=== PATIENT | female | born 1960 | race Caucasian/White ===

== ENCOUNTER 2016-11-12 08:29 | Emergency (ER) | payer SELFPAY ==
[~2016-11-12] VITALS: Ht 162.6 cm; Wt 65.0 kg
[~2016-11-12 08:29] MED LIST: METH500T3 PO; TRAM50 PO; Z.0.NO CURRENT MEDS
[2016-11-12 08:35] VITALS: BP 124/88; PULSE 82; RESP 17; TEMP 98.2; O2SAT 98
[2016-11-12] MEDS ORDERED: PERM5CRE11 TOPICAL (08:49)
[2016-11-12] MEDS ORDERED: HYDR-3133 PO (08:52)
--- NOTE | 2016-11-12 08:52 | PD ---
HPI Chief Complaint: Skin Problem Time Seen by Provider: 08:47 Travel History International Travel<30 days: No Contact w/Intl Traveler<30days: No Traveled to known affect area: No History of Present Illness HPI 56-year-old female presents to the emergency Department with complaint of scabies rash that she has had on and off for the past 4 months. Rash is itchy and all over. She has seen dermatology and [facility] with the same complaint multiple times. Has used Elimite cream and hydroxyzine. Says she has cleaned her house multiple times with recurrence. Denies fever, vomiting. Symptoms are mild in severity. Patient also requesting prescription for hydroxyzine for itching. Has no other medical complaints. No other modifying factors or associated signs and symptoms. PFSH Past Medical History Arthritis: Yes Asthma: No Blood Disorders: No Anxiety: Yes Heart Rhythm Problems: No Cancer: No Cardiovascular Problems: No High Cholesterol: No Chemotherapy: No Chest Pain: No Congestive Heart Failure: No COPD: Yes Diminished Hearing: No Endocrine: No Gastrointestinal Disorders: No Genitourinary: Yes Headaches: No Hypertension: No Immune Disorder: No Kidney Stones: Yes Musculoskeletal: Yes Neurologic: No Psychiatric: Yes Reproductive: No Respiratory: No Myocardial Infarction: No Renal Failure: No Seizures: No Thyroid Disease: No Tetanus Vaccination: > 5 Years ?: Not Menopausal: Yes : 2 Para: 1 Miscarriage: 0 : 1 Tubal Ligation: Yes Past Surgical History Abdominal Surgery: Yes (kidney stones) AICD: No Cardiac Surgery: No Section: Yes Ear Surgery: No Endocrine Surgery: No Eye Surgery: No Genitourinary Surgery: Yes Gynecologic Surgery: Yes Oral Surgery: No Pacemaker: No Thoracic Surgery: No Other Surgery: Yes (KIDNEY STONES) Social History Alcohol Use: No Tobacco Use: Yes (1 PPD) Substance Use: No Allergies-Medications (Allergen,Severity, Reaction): Coded Allergies: acetaminophen (Unverified Allergy, Severe, VOMITING, 11/12/16) codeine (Unverified Allergy, Severe, ITCHINESS, 11/12/16) cyclobenzaprine (Unverified Allergy, Severe, 11/12/16) meperidine (Unverified Allergy, Severe, VOMITING, 11/12/16) penicillin G (Unverified Allergy, Severe, UNKNOWN, 11/12/16) propoxyphene (Unverified Allergy, Severe, VOMITING, 11/12/16) nitrofurantoin (Unverified Allergy, Mild, VOMITING, 11/12/16) Reported Meds & Prescriptions Reported Meds & Active Scripts Active Hydroxyzine HCl 25 Mg Tab 25 Mg PO TID Elimite Topical (Permethrin) 5% Cream 1 Applic TOPICAL ONCE Review of Systems Except as stated in HPI: all other systems reviewed are Neg Physical Exam Narrative GENERAL: Well-nourished, well-developed female patient, in no acute distress SKIN: Warm and dry. Generalized erythremic pimple-like rash to chest, abdomen, back, bilateral upper extremity, bilateral lower extremities; some areas appear excoriated. No areas with cellulitic process noted. HEAD: Atraumatic. Normocephalic. EYES: Pupils equal and round. No scleral icterus. No injection or drainage. ENT: Mucosa pink and moist. Airway patent. NECK: Trachea midline. CARDIOVASCULAR: Regular rate. RESPIRATORY: No accessory muscle use. GASTROINTESTINAL: Rounded. MUSCULOSKELETAL: No obvious deformities. No clubbing. No cyanosis. No edema. NEUROLOGICAL: Awake and alert. Oriented 3. No obvious cranial nerve deficits. Motor grossly within normal limits. Normal speech. PSYCHIATRIC: Appropriate mood and affect; insight and judgment normal. Data Data Last Documented VS Vital Signs Date Time Temp Pulse Resp B/P (MAP) Pulse Ox O2 Delivery O2 Flow Rate FiO2 11/12/16 08:35 98.2 82 17 124/88 (100) 98 MDM Medical Decision Making Medical Screen Exam Complete: Yes Emergency Medical Condition: Yes Medical Record Reviewed: Yes Differential Diagnosis Scabies rash, contact dermatitis, bedbugs, nonspecific rash Narrative Course 56-year-old female physical exam consistent with generalized scabies rash. Patient is afebrile and nontoxic-appearing. She denies fever, vomiting. Elimite cream and hydroxyzine prescribed for home. Instructed patient to follow up with software development project manager. Instructed patient to follow up with primary care provider. Patient verbalizes understanding and agreement with treatment plan. Patient is medically cleared and stable for discharge. Discussed reasons to return to the emergency department. Patient agrees with treatment plan. The patients vital signs are stable and the patient is stable for outpatient follow-up and treatment. Patient discharged home, stable and in no acute distress. Diagnosis Primary Impression: Scabies Referrals: [facility] Primary Care Physician Patient Instructions: General Instructions, Scabies (ED) Departure Forms: Tests/Procedures, Work Release Enter return to work date: Nov 14, 2016 Additional Instructions: Elimite cream as directed; repeat in one week as needed Soaking in cool water or apply cool, wet washcloths to irritated areas to minimize itching Apply anti-itch creams, such as calamine lotion, to relieve pain and itching as needed [id number] antihistamines as needed and as directed to relieve allergic symptoms caused by scabies Wash all pillows, linens, blankets, etc. in hot water and dry in hot dryer Bag and all unwashable linens, Adrian stuffed animals, etc. in a tightly sealed garbage bag for up to 2 weeks Follow-up with software development project manager Follow-up with primary care provider Return to the emergency department immediately with worsening of symptoms Med/Other Pt SpecificInfo: Prescription(s) given Scripts Hydroxyzine HCl (Hydroxyzine HCl) 25 Mg Tab 25 MG PO TID, #12 TAB 0 Refills Prov: Zandra Garcia 11/12/16 Permethrin Topical (Elimite Topical) 5% Cream 1 APPLIC TOPICAL ONCE for Scabies, #1 TUBE 1 Refill Prov: Zandra Garcia 11/12/16 Disposition: 01 DISCHARGE HOME Condition: Stable Zandra Garcia Nov 12, 2016 08:52
== END 2016-11-12 09:12 | disposition home or self-care (01) ==
LOC: NEPK 08:29
DX: B86 Scabies (principal); F41.9 Anxiety disorder, unspecified; J44.9 Chronic obstructive pulmonary disease, unspecified; F17.200 Nicotine dependence, unspecified, uncomplicated; Z79.899 Other long term (current) drug therapy; Z87.442 Personal history of urinary calculi; Z88.5 Allergy status to narcotic agent; Z88.0 Allergy status to penicillin; Z88.8 Allergy status to other drugs, medicaments and biological substances
CPT/HCPCS: 99283

== ENCOUNTER 2016-12-26 10:40 | Emergency (ER) | payer SELFPAY ==
[~2016-12-26] VITALS: Ht 160 cm; Wt 56.0 kg
[~2016-12-26 10:40] MED LIST changes: +HYDR-3133 PO; -METH500T3 PO; +PERM5CRE11 TOPICAL; -TRAM50 PO; -Z.0.NO CURRENT MEDS
[2016-12-26 10:42] VITALS: BP 133/90; PULSE 98; RESP 15; TEMP 97.9; O2SAT 97
[2016-12-26] MEDS ORDERED: GARL1CAP6 (11:52)
[2016-12-26] MEDS ORDERED: XANA1TAB2 PO (11:52)
[2016-12-26] MEDS ORDERED: VITA100021 SL (11:52)
[2016-12-26] MEDS ORDERED: SODIUM CHLORIDE 0.9% FLUSH 10 ML FLUSH IV FLUSH PRN (12:15)
--- NOTE | 2016-12-26 12:33 | PD ---
HPI Chief Complaint: Skin Problem Time Seen by Provider: 11:51 Travel History International Travel<30 days: No Contact w/Intl Traveler<30days: No Traveled to known affect area: No History of Present Illness HPI 56 YO F presents to the ED for evaluation of 6 month history of pruritic rash over the whole body. Gradual onset, first on the hands and feet. She states that she thought it might be due to fleas because her dog had them. She states that she was seen multiple times at multiple hospitals, diagnosed with scabies and prescribed Elimite multiple times with no improvement of her symptoms. She states that she has complied with instructions to rid her home of scabies. No one who has come into contact with the patient has contracted the rash. She endorses low appetite, weight loss and loose stools since onset of the rash. She denies fever, chills, nausea, vomiting, abdominal pain, dysuria, melena, hematochezia. She states that she sometimes picks the scabs and she can see a little bug. She states that when she wakes up in the morning the bugs are gone. PFSH Past Medical History Arthritis: Yes Asthma: No Blood Disorders: No Anxiety: Yes Heart Rhythm Problems: No Cancer: No Cardiovascular Problems: No High Cholesterol: No Chemotherapy: No Chest Pain: No Congestive Heart Failure: No COPD: Yes Diminished Hearing: No Endocrine: No Gastrointestinal Disorders: No Genitourinary: Yes Headaches: No Hypertension: No Immune Disorder: No Kidney Stones: Yes Musculoskeletal: Yes Neurologic: No Psychiatric: Yes Reproductive: No Respiratory: No Myocardial Infarction: No Renal Failure: No Seizures: No Thyroid Disease: No Influenza Vaccination: Yes ?: Not Menopausal: Yes : 2 Para: 1 Miscarriage: 0 : 1 Tubal Ligation: Yes Past Surgical History Abdominal Surgery: Yes (kidney stones) AICD: No Cardiac Surgery: No Section: Yes Ear Surgery: No Endocrine Surgery: No Eye Surgery: No Genitourinary Surgery: Yes Gynecologic Surgery: Yes Oral Surgery: No Pacemaker: No Thoracic Surgery: No Other Surgery: Yes (KIDNEY STONES) Social History Alcohol Use: No Tobacco Use: Yes (1 PPD) Substance Use: No Allergies-Medications (Allergen,Severity, Reaction): Coded Allergies: acetaminophen (Unverified Allergy, Severe, VOMITING, 12/26/16) codeine (Unverified Allergy, Severe, ITCHINESS, 12/26/16) cyclobenzaprine (Unverified Allergy, Severe, 12/26/16) meperidine (Unverified Allergy, Severe, VOMITING, 12/26/16) penicillin G (Unverified Allergy, Severe, UNKNOWN, 12/26/16) propoxyphene (Unverified Allergy, Severe, VOMITING, 12/26/16) nitrofurantoin (Unverified Allergy, Mild, VOMITING, 12/26/16) Reported Meds & Prescriptions Reported Meds & Active Scripts Active Prednisone (48) 10 mg tab Dose Pack (Prednisone) 10 Mg Dspk 10 Mg PO DIRECTED Hydroxyzine HCl 25 Mg Tab 25 Mg PO QID PRN Hydroxyzine HCl 25 Mg Tab 25 Mg PO TID Elimite Topical (Permethrin) 5% Cream 1 Applic TOPICAL ONCE Reported Vitamin B-12 (Cyanocobalamin) 1,000 Mcg Subl 1,000 Mcg SL DAILY Garlic 1 Mg Capsule Xanax (Alprazolam) 1 Mg Tab 1 Mg PO Q8H PRN Review of Systems Except as stated in HPI: all other systems reviewed are Neg Physical Exam Narrative GENERAL: Well-nourished, well-developed thin white female in no acute distress. PSYCHIATRIC: Anxious, pressured speech. SKIN: Focused skin assessment warm/dry. Multiple areas of skin disturbance including erythematous, nonblanching, maculopapular, scaly patches. There are a few scattered bullae. There are multiple excoriations and several healing crusts. There is no warmth, erythema, discharge. HEAD: Normocephalic. EYES: No scleral icterus. No injection or drainage. NECK: Supple, trachea midline. No JVD or lymphadenopathy. CARDIOVASCULAR: Regular rate and rhythm without murmurs, gallops, or rubs. RESPIRATORY: Breath sounds equal bilaterally. No accessory muscle use. GASTROINTESTINAL: Abdomen soft, non-tender, nondistended. MUSCULOSKELETAL: No cyanosis. 1+ edema to the ankles bilaterally. BACK: Nontender without obvious deformity. No CVA tenderness. Data Data Last Documented VS Vital Signs Date Time Temp Pulse Resp B/P (MAP) Pulse Ox O2 Delivery O2 Flow Rate FiO2 12/26/16 14:00 12/26/16 11:52 19 12/26/16 10:42 97.9 98 97 Orders Orders Hydroxyzine Pamoate (Vistaril) (12/26/16 12:15) Alprazolam (Xanax) (12/26/16 12:45) Lidoca-Epi Pf 2%-1:200,000 Inj (Xylocain (12/26/16 12:45) Mandatory Outpatient Referral (12/26/16 15:27) MDM Medical Decision Making Medical Screen Exam Complete: Yes Emergency Medical Condition: Yes Differential Diagnosis contact dermatitis versus psoriasis versus eczema versus porphyria versus delusional parasitosis versus other Narrative Course 56 YO F presents to the ED for evaluation of 6 month history of pruritic rash over the whole body. Gradual onset, first on the hands and feet. Reviewed with Elimite multiple times with no improvement of her symptoms. She states that she has complied with instructions to rid her home of scabies. No sick contacts, no one else has contracted the rash from the patient. She endorses low appetite , weight loss and loose stools since onset of the rash. She denies fever, chills, nausea, vomiting, abdominal pain, dysuria, melena, hematochezia. She states that she sometimes picks the scabs and she can see a little bug. She states she wakes up in the morning the bugs are gone. Vitals reviewed. Physical exam reveals a very anxious white female in NAD. There is a rash distributed over the entire skin surface. The majority of the rashes macular papular, nonblanching, scaly patches. There are a few scattered bullae. There are multiple excoriations and healing crusts all without signs of infection. Patient was administered 50 g of Vistaril and 1 mg Xanax by mouth. Shave biopsy was performed and pathology is pending at this time. She was prescribed short course of oral steroids and Atarax. She is provided with a mandatory outpatient dermatology consult. Discussed reasons to return to the ED. The patient is stable and discharged home. Procedures Procedure Narrative SHAVE BIOPSY: LOCATION: Left ankle The area was prepped with Betadine and sterilely draped. The biopsy site was infiltrated with 1% lidocaine with epinephrine. A 1.5 cm shave biopsy was obtained and sent to pathology in formalin. A sterile dressing was applied. The patient was advised to keep the wound clean and dry. Patient tolerated the procedure well. Diagnosis Primary Impression: Skin rash Additional Impression: Anxiety Referrals: Vending Machine Operator Patient Instructions: Acute Rash (ED), General Instructions Additional Instructions: Rest, hydrate. Avoid contact with known allergens. Cool showers to avoid worsening of her rash. Mandatory outpatient follow-up has been placed on your behalf. You can expect a phone call from either the hospital or the etcher printed [employer] office in the upcoming weeks to schedule an appointment. Return to the ED for any urgent or emergent medical condition. Scripts Prednisone (48) 10 mg tab Dose Pack (Prednisone (48) 10 mg tab Dose Pack) 10 Mg Dspk 10 MG PO DIRECTED for Inflammation, #1 DSPK 0 Refills Prov: Shayy Garza MD 12/26/16 Hydroxyzine HCl (Hydroxyzine HCl) 25 Mg Tab 25 MG PO QID Y for ITCHING, #20 TAB 0 Refills Prov: Shayy Garza MD 12/26/16 Disposition: 01 DISCHARGE HOME Condition: Stable Kerry Lawson Dec 26, 2016 12:33
[2016-12-26] MEDS ORDERED: LIDOCAINE 2%/EPINEPHrine PF 1:200,000 20ML SDV INFIL ONE (12:45)
[2016-12-26] MEDS ORDERED: ALPRAZolam 1 MG TAB PO ONE (12:45)
[2016-12-26] MEDS ORDERED: PRED10PA2 PO (14:01)
[2016-12-26] MEDS ORDERED: HYDR-3133 PO (14:01)
--- NOTE | 2016-12-26 19:01 | PD ---
Data Data Last Documented VS Vital Signs Date Time Temp Pulse Resp B/P (MAP) Pulse Ox O2 Delivery O2 Flow Rate FiO2 12/26/16 14:00 12/26/16 11:52 19 12/26/16 10:42 97.9 98 97 Orders Orders Hydroxyzine Pamoate (Vistaril) (12/26/16 12:15) Alprazolam (Xanax) (12/26/16 12:45) Lidoca-Epi Pf 2%-1:200,000 Inj (Xylocain (12/26/16 12:45) Mandatory Outpatient Referral (12/26/16 15:27) MDM Supervised Visit with LUCIANA: Yes Narrative Course The history, exam, and medical decision-making in the associated midlevel provider note were completed with my assistance. I reviewed and agree with the findings presented. I attest that I had a [id number] encounter with the patient on the same day, and personally performed and documented my assessment and findings in the medical record. *My assessment and Findings: This is a 56-year-old female who presents to the emergency department with itchy skin and wounds all over her arms and legs. Patient seems hypomanic on exam. She says that she thinks that bugs are coming out of her scan and she sees bugs under a microscope. 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 It seems reasonable to rule out an organic pathology. We performed a skin biopsy in the emergency department. Patient was given a mandatory referral for dermatology but I also recommended that she follow up with psychiatrist. Diagnosis Primary Impression: Skin rash Additional Impression: Anxiety Referrals: Harness Worker Patient Instructions: General Instructions, Acute Rash (ED) Departure Forms: Tests/Procedures Additional Instruction: Rest, hydrate. Avoid contact with known allergens. Cool showers to avoid worsening of her rash. Mandatory outpatient follow-up has been placed on your behalf. You can expect a phone call from either the hospital or the [facility]mer automatic office in the upcoming weeks to schedule an appointment. Return to the ED for any urgent or emergent medical condition. Scripts Prednisone (48) 10 mg tab Dose Pack (Prednisone (48) 10 mg tab Dose Pack) 10 Mg Dspk 10 MG PO DIRECTED for Inflammation, #1 DSPK 0 Refills Prov: Shayy Garza MD 12/26/16 Hydroxyzine HCl (Hydroxyzine HCl) 25 Mg Tab 25 MG PO QID Y for ITCHING, #20 TAB 0 Refills Prov: Shayy Garza MD 12/26/16 Disposition: 01 DISCHARGE HOME Condition: Stable Shayy Garza MD Dec 26, 2016 19:01
== END 2016-12-26 14:15 | disposition home or self-care (01) ==
LOC: NEPD 10:40
DX: R21 Rash and other nonspecific skin eruption (principal); F41.9 Anxiety disorder, unspecified
CPT/HCPCS: 11307; 88305

== ENCOUNTER 2017-10-28 12:54 | Inpatient (IN) ==
--- NOTE | 2017-10-28 13:44 | ED ---
HPI General Chief Complaint: Psychiatric Symptoms Stated Complaint: [facility]/Psych Eval Time Seen by Provider: 10/28/17 13:38 History of Present Illness HPI Narrative: Patient comes emergency department under [place] act by police reports suicidal ideations. Patient denies any suicidal or homicidal ideations. Patient states that she has been treated 9 times for scabies over the past year but they have never gone away. Patient reports that she has had her house treated for scabies but continues to see the bugs in her home and food. Patient states that she does not want to eat food at home secondary to bugs being in her food. Patient reports that she has been drinking protein shakes instead. Patient states she has lost weight secondary to not eating. Patient states that the itching is constant and is the same day or night. Patient denies anything making it better or worse. Patient states when she scratches at the lesions and she sees little black baby bugs run out of the sores. Denies any fevers, chest pain, shortness of breath, or loss change in bowel or bladder. Related Data Home Medications Medication Instructions Recorded Confirmed Xanax 1 mg PO TID 10/28/17 10/28/17 gabapentin 300 mg PO BID 10/28/17 10/28/17 Allergies Allergy/AdvReac Type Severity Reaction Status Date / Time acetaminophen Allergy Severe VOMITING Unverified 12/26/16 11:50 codeine Allergy Severe ITCHINESS Unverified 12/26/16 11:50 cyclobenzaprine Allergy Severe Unverified 12/26/16 11:50 meperidine Allergy Severe VOMITING Unverified 12/26/16 11:50 penicillin G Allergy Severe UNKNOWN Unverified 12/26/16 11:50 propoxyphene Allergy Severe VOMITING Unverified 12/26/16 11:50 nitrofurantoin Allergy Mild VOMITING Unverified 12/26/16 11:50 Review of Systems ROS: all other systems reviewed are negative [facility] Medical History Medical History Anxiety (Acute) History of hysterectomy (Acute) Kidney stones (Acute) Scabies (Acute) Social History Social History Substance History: Past History Second Hand Smoke Exposure: No Smoking Status: Current every day smoker Tobacco Type: Cigarettes How Often Do You Have a Drink Containing Alcohol: Never Recent Travel in [facility] within the Last 8 Weeks: No Recent Out of Country Travel within the Last 8 Weeks: No Exam Narrative Exam Narrative: GENERAL: Well-developed, well nourished, in no acute distress, and non-ill appearing. SKIN: Patient has multiple areas of dry skin with some excoriation noted. Findings are not consistent with scabies, folliculitis, cellulitis, or impetigo. HEAD: Atraumatic. Normocephalic. EYES: Pupils equal and round. EOMI. No scleral icterus. No injection or drainage. ENT: No nasal bleeding or discharge. Mucous membranes pink and moist. NECK: Trachea midline. Supple. No nuclear rigidity. CARDIOVASCULAR: Regular rate and rhythm. No murmur appreciated. RESPIRATORY: No accessory muscle use. No respiratory distress. Clear to auscultation. Breath sounds equal bilaterally. GASTROINTESTINAL: Abdomen soft, non-tender, nondistended, and no guarding. Hepatic and splenic margins not palpable. Normal bowel sounds x4. No pulsatile mass. MUSCULOSKELETAL: No obvious deformities. No clubbing. No cyanosis. No edema. Full range of motion. NEUROLOGICAL: Awake and alert. No obvious cranial nerve deficits. Motor grossly within normal limits. Normal speech. PSYCHIATRIC: Appropriate mood and affect; insight and judgment normal. Course Initial Documented Vital Signs Temperature 98.7 F 10/28/17 13:07 Pulse Rate 113 H 10/28/17 13:07 Respiratory Rate 20 10/28/17 13:07 Blood Pressure 153/90 H 10/28/17 13:07 Pulse Oximetry 97 10/28/17 13:07 Last Documented Vital Signs Temperature 98.0 F 10/28/17 18:27 Pulse Rate 92 H 10/28/17 18:27 Respiratory Rate 18 10/28/17 18:27 Blood Pressure 125/106 H 10/28/17 18:27 Pulse Oximetry 98 10/28/17 18:27 Medical Decision Making MDM Narrative Medical decision making narrative: Patient was seen and examined. Labs were obtained and reviewed. Patient medically cleared for further treatment and evaluation by psych. Final disposition per psych. Medical Screen Exam Complete: Yes Emergency Medical Condition: Yes Differential Diagnosis Differential Diagnosis: Homicidal, suicidal, acute psychosis, mood disorder, substance abuse, metabolic disturbance, dehydration, paranoia Lab Data Result diagrams: 10/28/17 13:11 10/28/17 13:11 Lab Results 10/28/17 10/28/17 10/28/17 Range/Units 13:11 13:11 13:11 WBC 5.8 (4.0-11.0) th/mm3 RBC 4.96 (4.00-5.30) mil/mm3 Hgb 15.0 (11.6-15.3) gm/dL Hct 44.7 (35.0-46.0) % MCV 90.2 (80.0-100.0) fL MCH 30.3 (27.0-34.0) pg MCHC 33.6 (32.0-36.0) % RDW 13.4 (11.6-17.2) % Plt Count 211 (150-450) th/mm3 MPV 9.7 (7.0-11.0) fL Neut % (Auto) 67.9 (16.0-70.0) % Lymph % (Auto) 23.2 (9.0-44.0) % Maries % (Auto) 6.3 (0.0-8.0) % Eos % (Auto) 2.0 (0.0-4.0) % Baso % (Auto) 0.6 (0.0-2.0) % Neut # (Auto) 3.9 (1.8-7.7) th/mm3 Lymph # (Auto) 1.3 (1.0-4.8) th/mm3 Maries # (Auto) 0.4 (0.0-0.9) th/mm3 Eos # (Auto) 0.1 (0.0-0.4) th/mm3 Baso # (Auto) 0.0 (0.0-0.2) th/mm3 WBC Differential . Differential Comment Auto diff final Sodium 140 (136-145) meq/L Potassium 3.9 (3.5-5.1) meq/L Chloride 107 (98-107) meq/L Carbon Dioxide 25.2 (21.0-32.0) meq/L Anion Gap 8 (5-15) meq/L BUN 11 (7-18) mg/dL Creatinine 0.88 (0.50-1.00) mg/dL Estimated GFR 66 L (>89) mL/min Random Glucose 139 H (74-106) mg/dL Calcium 9.6 (8.5-10.1) mg/dL Total Bilirubin 0.6 (0.2-1.0) mg/dL AST 39 H (15-37) U/L ALT 48 (10-53) U/L Alkaline Phosphatase 59 (45-117) U/L Total Protein 7.8 (6.4-8.2) g/dL Albumin 4.2 (3.4-5.0) g/dL TSH 1.120 (0.358-3.740) uIU/mL Urine Color (Yellw/Straw) Urine Clarity (Clear) Urine pH (5.0-8.5) Ur Specific [place] (1.002-1.035) Urine Protein (Neg-Trace) mg/dL Urine Glucose (UA) (Negative) mg/dL Urine Ketones (Negative) mg/dL Urine Occult Blood (Negative) Urine Nitrate (Negative) Urine Bilirubin (Negative) Urine Urobilinogen (Less than 2) mg/dL Ur Leukocyte Esterase (Negative) Urine RBC (0-3) /hpf Urine WBC (0-5) /hpf Ur Squamous Epith Cells (0-5) /hpf Urine Bacteria (None) /hpf Hyaline Casts (0-3) /lpf Urine Mucus (Occasional) /lpf Micro UA Comment Urine Culture Comments Salicylates 1.8 L (2.8-20.0) mg/dL Urine Opiates Screen (Neg) Acetaminophen Less than 2.0 L (10.0-30.0) mcg/mL Ur Barbiturates Screen (Neg) Ur Amphetamines Screen (Neg) U Benzodiazepines Scrn (Neg) Urine Cocaine Screen (Neg) U Cannabinoids Screen (Neg) Serum Alcohol Less than 3 (0-5) mg/dL 10/28/17 10/28/17 Range/Units 15:25 15:25 WBC (4.0-11.0) th/mm3 RBC (4.00-5.30) mil/mm3 Hgb (11.6-15.3) gm/dL Hct (35.0-46.0) % MCV (80.0-100.0) fL MCH (27.0-34.0) pg MCHC (32.0-36.0) % RDW (11.6-17.2) % Plt Count (150-450) th/mm3 MPV (7.0-11.0) fL Neut % (Auto) (16.0-70.0) % Lymph % (Auto) (9.0-44.0) % Maries % (Auto) (0.0-8.0) % Eos % (Auto) (0.0-4.0) % Baso % (Auto) (0.0-2.0) % Neut # (Auto) (1.8-7.7) th/mm3 Lymph # (Auto) (1.0-4.8) th/mm3 Maries # (Auto) (0.0-0.9) th/mm3 Eos # (Auto) (0.0-0.4) th/mm3 Baso # (Auto) (0.0-0.2) th/mm3 WBC Differential Differential Comment Sodium (136-145) meq/L Potassium (3.5-5.1) meq/L Chloride (98-107) meq/L Carbon Dioxide (21.0-32.0) meq/L Anion Gap (5-15) meq/L BUN (7-18) mg/dL Creatinine (0.50-1.00) mg/dL Estimated GFR (>89) mL/min Random Glucose (74-106) mg/dL Calcium (8.5-10.1) mg/dL Total Bilirubin (0.2-1.0) mg/dL AST (15-37) U/L ALT (10-53) U/L Alkaline Phosphatase (45-117) U/L Total Protein (6.4-8.2) g/dL Albumin (3.4-5.0) g/dL TSH (0.358-3.740) uIU/mL Urine Color Yellow (Yellw/Straw) Urine Clarity Clear (Clear) Urine pH 6.0 (5.0-8.5) Ur Specific [place] 1.010 (1.002-1.035) Urine Protein Negative (Neg-Trace) mg/dL Urine Glucose (UA) Negative (Negative) mg/dL Urine Ketones Negative (Negative) mg/dL Urine Occult Blood Negative (Negative) Urine Nitrate Negative (Negative) Urine Bilirubin Negative (Negative) Urine Urobilinogen Less than 2 (Less than 2) mg/dL Ur Leukocyte Esterase Negative (Negative) Urine RBC Less than 1 (0-3) /hpf Urine WBC Less than 1 (0-5) /hpf Ur Squamous Epith Cells 1 (0-5) /hpf Urine Bacteria Rare H (None) /hpf Hyaline Casts 1 (0-3) /lpf Urine Mucus Few H (Occasional) /lpf Micro UA Comment Culture not ind Urine Culture Comments Culture not ind Salicylates (2.8-20.0) mg/dL Urine Opiates Screen Pos H (Neg) Acetaminophen (10.0-30.0) mcg/mL Ur Barbiturates Screen Neg (Neg) Ur Amphetamines Screen Neg (Neg) U Benzodiazepines Scrn Pos H (Neg) Urine Cocaine Screen Pos H (Neg) U Cannabinoids Screen Neg (Neg) Serum Alcohol (0-5) mg/dL Discharge Plan Discharge Disposition Patient Disposition: 30 Still Patient Discharge Condition Condition: Stable Discharge Details Diagnosis: Substance abuse, Medical clearance for psychiatric admission Physicians Team ED Provider: Cecilia Umaña ED Midlevel Provider: Arnel Mack Primary Care Provider: Primary Care Lenore Marsh Rxs /Orders / Referrals /Forms Prescriptions: No Action Xanax 1 mg PO TID RF: 0 gabapentin 300 mg PO BID RF: 0 Status ED Status: Medically Cleared
[2017-10-28 14:03] LABS: Baso % (Auto) 0.6 % (0.0-2.0); Eos # (Auto) 0.1 th/mm3 (0.0-0.4); Hematocrit 44.7 % (35.0-46.0); Lymph # (Auto) 1.3 th/mm3 (1.0-4.8); Lymph % (Auto) 23.2 % (9.0-44.0); Mean Corpuscular HGB Conc 33.6 % (32.0-36.0); Mean Corpuscular Hemoglobin 30.3 pg (27.0-34.0); Mean Corpuscular Volume 90.2 fL (80.0-100.0); Mean Platelet Volume 9.7 fL (7.0-11.0); Mono # (Auto) 0.4 th/mm3 (0.0-0.9); Mono % (Auto) 6.3 % (0.0-8.0); Neut # (Auto) 3.9 th/mm3 (1.8-7.7); Neut % (Auto) 67.9 % (16.0-70.0); Platelet Count 211 th/mm3 (150-450); Red Blood Count 4.96 mil/mm3 (4.00-5.30); Red Cell Distribution Width 13.4 % (11.6-17.2); White Blood Count 5.8 th/mm3 (4.0-11.0)
[2017-10-28 14:17] LABS: Alanine Aminotransferase 48 U/L (10-53); Albumin 4.2 g/dL (3.4-5.0); Anion Gap 8 meq/L (5-15); Aspartate Aminotransferase 39 U/L (15-37); Blood Urea Nitrogen 11 mg/dL (7-18); Calcium 9.6 mg/dL (8.5-10.1); Carbon Dioxide 25.2 meq/L (21.0-32.0); Chloride 107 meq/L (98-107); Glomerular Filtration Rate 66 mL/min (>89); Glucose,Random 139 mg/dL (74-106); Potassium 3.9 meq/L (3.5-5.1); Sodium 140 meq/L (136-145)
[2017-10-28 14:27] LABS: Alkaline Phosphatase 59 U/L (45-117); Total Protein 7.8 g/dL (6.4-8.2)
[2017-10-28 15:56] LABS: Bacteria,Urine Rare /hpf; Bilirubin,Urine Negative (Negative); Clarity,Urine Clear (Clear); Color,Urine Yellow (Yellw/Straw); Glucose,Urine (UA) Negative (Negative); Hyaline Casts,Urine 1 /lpf (0-3); Leukocyte Esterase,Urine Negative (Negative); Mucus,Urine Few /lpf (Occasional); Nitrite,Urine Negative (Negative); Squamous Epithelial Cell,Urine 1 /hpf (0-5)
[2017-10-28 16:09] LABS: Amphetamine Screen,Urine Neg (Neg); Barbiturate Screen,Urine Neg (Neg); Cannabinoid Screen,Urine Neg (Neg); Cocaine Screen,Urine Pos (Neg)
[2017-10-28 16:10] LABS: Opiate Screen,Urine Pos (Neg)
[2017-10-28] MEDS ORDERED: Ibuprofen 600 MG Tablet PO ONE (17:24)
[2017-10-29] MEDS ORDERED: Ibuprofen 600 MG Tablet PO ONE (02:14)
[2017-10-29] MEDS ORDERED: Haloperidol Inj 5 MG/ML Ampul IV.PUSH PRN (10:37)
[2017-10-29] MEDS ORDERED: Bisacodyl 10 MG Supp RECTAL PRN (10:37)
[2017-10-29] MEDS ORDERED: Aluminum/Magnesium/Simethacone Susp 30 ML UDC PO PRN (10:37)
--- NOTE | 2017-10-29 15:11 | P.HPPSY ---
Provisional Diagnosis Admission Date: October 29, 2017 10:38 [place] I.: Unspecified psychosis, delusional disorder, somatic type, delusions of parasitosis, hemoptic-sedative, opiates, and cocaine use disorder, Competence Certification of Person's Competence To Provide Express and Informed Consent I have personally examined Demetrice Pittman, a person being served at [facility] on, October 29, 2017 1455. Express and informed consent means consent voluntarily given in writing, by a competent person, after sufficient explanation and disclosure of the subject matter involved to enable the person to make a knowing and willful decision without any element of force, fraud, deceit, duress, or other form of constraint or coercion. This person is 18 years of age or older, is not now known to be incompetent to consent to treatment with a guardian advocate, and does not have a health care surrogate or proxy currently making medical treatment decisions. I have found this person to be one of the following: [] Competent to provide express and informed consent, as defined above, for voluntary admission to this facility and is competent to provide express and informed consent for treatment. He/she has the consistent capacity to make well reasoned, willful, and knowing decisions concerning his or her medical or mental health treatment. The person fully and consistently understands the purpose of the admission for examination/placement and is fully capable of personally exercising all rights assured [place] Incompetent to provide express and informed consent to voluntary admission, and this is incompetent to provide express and informed consent to treatment. The person must be transferred to involuntary status and a petition for a guardian advocate filed with the Circuit Court. [x] Refusing to provide express and informed consent to voluntary admission but is competent to provide express and informed consent for treatment. The person must be discharged or transferred to involuntary status. Form shall be completed within 24 hours of a person's arrival at the receiving facility and filed in the clinical record of each person: 1. Admitted on a voluntary basis 2. Permitted to provide express and informed consent to his/her own treatment 3. Allowed to transfer from involuntary to voluntary status 4. Prior to permitting a person to consent to his or her own treatment after having been previously found incompetent to consent to treatment. History of Present Illness Capacity: Has capacity History of Present Illness: The patient is a 57 year old woman, domiciled with her in [place], unemployed, anxiety, benzodiazepines, opiates and cocaine use disorder, no previous psychiatric hospitalizations, no previous suicidal attempts, the patient reports that she has been in Xanax 1 mg 3 times per day prescribed by PCP for a long time, she has medical history hypertension, who comes emergency department under [place] act by police reports suicidal ideations. U tox is positive for cocaine, opiates and cannabis. Chart was reviewed. The case was discussed with ER staff. On my psychiatric evaluation I find a patient that is extremely anxious, very emotionally unstable, stating that she has a real problem that no doctor have been able to self. She is looking at her bed screen, stating that the "bed is full of eggs". Patient states that she has been treated 9 times for scabies over the past year but they have never gone away. Patient reports that she has had her house treated for scabies but continues to see the bugs in her home and food. Patient states that she does not want to eat food at home secondary to bugs being in her food. Patient reports that she has been drinking protein shakes instead. Patient states she has lost weight secondary to not eating. She says that she prefers to kill herself before having to live this way. Patient tries to show me this scabies is in her skin, all I see are multiple scratches and lacerations, patient states that the itching is constant and is the same day or night. Patient states when she scratches at the lesions and she sees little black baby bugs run out of the sores. On the evaluation the patient is very anxious, very tremulous, she says that she is withdrawing. She denies homicidal ideation, she denies visual and auditory hallucinations at the moment. - Inpatient Certification I certify that the inpatient services were ordered in accordance with Medicare regulations governing the order. This includes certification that hospital inpatient services are reasonable and necessary and in the case of services not specified as inpatient-only under 42 CFR 419.22(n), that they are appropriately provided as inpatient services in accordance to with the 2-midnight benchmark under 43 CFR 412.3(e) I certify that inpatient psychiatric hospital services are medically necessary. Evaluation and treatment and/or diagnostic testing are expected to improve the patient's condition. The patient needs on a daily basis, active treatment furnished directly by or requiring the supervision of inpatient psychiatric facility personnel. Estimated Total Length of Stay (Days): 7 Plans for Post Hospital Care: Home Review of Systems Constitutional: Denies anorexia, Denies body ache(s), Denies chills, Denies daytime sleepiness, Denies excessive sweating, Denies fatigue, Denies fever(s), Denies headache(s), Denies increased appetite, Denies lack of energy, Denies malaise, Denies night sweats, Denies weakness, Denies weight gain, Denies weight loss, Denies other Eyes: Denies blind spots, Denies blurry vision, Denies bulging eyes, Denies change in vision, Denies double vision, Denies discharge, Denies dry eyes, Denies floaters, Denies irritation, Denies itchy eyes, Denies loss of vision, Denies pain, Denies requires corrective lenses, Denies sensitivity to light, Denies other Ears, Nose, Mouth, and Throat: Denies abnormal hearing, Denies bleeding gums, Denies bad breath, Denies change in voice, Denies dental pain, Denies difficulty swallowing, Denies dizziness, Denies dry mouth, Denies ear discharge , Denies ear pain, Denies facial pain, Denies headache(s), Denies hearing loss, Denies hoarseness, Denies lip swelling, Denies nosebleed, Denies mouth lesions, Denies mouth pain, Denies nasal congestion, Denies nasal discharge, Denies nasal obstruction, Denies nasal trauma, Denies neck lump, Denies neck pain, Denies nose pain, Denies pain with swallowing, Denies poor balance, Denies post nasal drip, Denies ringing in the ears, Denies sinus pain, Denies sinus pressure , Denies sore throat, Denies throat swelling, Denies tongue swelling, Denies other Cardiovascular: Denies chest pain, Denies chest pain at rest, Denies chest pain with activity, Denies excessive sweating, Denies fainting, Denies fast heart rate, Denies foot swelling, Denies generalized swelling, Denies irregular heart rhythm, Denies leg pain with activity, Denies leg sores, Denies leg swelling, Denies lightheadedness, Denies radiating jaw, neck or arm pain, Denies rapid, pounding, or irregular heartbeat, Denies shortness of breath, Denies shortness of breath with activity, Denies shortness of breath when lying down, Denies shortness of breath causing sudden awakening, Denies slow heart rate, Denies other Respiratory: Denies change in phlegm color, Denies chest congestion, Denies cough, Denies coughing up blood, Denies excessive phlegm production, Denies pain on inspiration, Denies pain with cough, Denies shortness of breath, Denies shortness of breath with activity, Denies snoring, Denies stridor, Denies wheezing, Denies other Gastrointestinal: Denies abdominal pain, Denies belching, Denies black, tarry stools, Denies bloating, Denies bright, red blood in stools, Denies change in bowel habits, Denies constant urge to pass stool, Denies change in stools, Denies coffee ground vomit, Denies constipation, Denies cramping, Denies difficulty swallowing, Denies excessive passing of gas, Denies feeling full early, Denies heartburn, Denies incontinent of stools, Denies loose stools, Denies nausea, Denies pain with swallowing, Denies vomiting, Denies vomiting blood, Denies other Genitourinary: Denies abnormal periods, Denies abnormal vaginal bleeding, Denies absent period, Denies bleeding between periods, Denies blood in urine, Denies difficulty starting urination, Denies difficulty urinating, Denies dribbling after urination, Denies frequent nighttime urination, Denies genital itching, Denies genital lesions, Denies heavy periods, Denies hot flashes, Denies light periods, Denies nipple discharge, Denies painful intercourse, Denies painful periods, Denies painful urination, Denies pelvic pain, Denies prolapse symptoms, Denies sexual problems, Denies side pain, Denies urinary incontinence, Denies urinary urgency, Denies vaginal discharge, Denies vaginal dryness, Denies vaginal odor, Denies vaginal itching, Denies other Musculoskeletal: Denies abnormal walking, Denies back pain, Denies body aches, Denies decreased muscle mass, Denies deformity, Denies joint pain, Denies joint swelling, Denies limited joint movement, Denies loss of height, Denies muscle cramps, Denies muscle weakness, Denies neck pain, Denies numbness, Denies radiating pain into limb, Denies stiffness, Denies tingling, Denies other Psychiatric: Reports confusion, Reports depression, Reports irritability, Reports mood swings, Reports paranoia, Denies abnormal sleep pattern, Denies anxiety, Denies behavioral changes, Denies change in appetite, Denies change in sex drive, Denies difficulty concentrating, Denies hearing things others do not hear, Denies hopelessness, Denies lack of enjoyment, Denies memory loss, Denies panic attacks, Denies seeing things others do not see, Denies sensing things others do not sense, Denies tactile hallucinations, Denies thoughts of hurting/ killing others, Denies thoughts of hurting/killing yourself, Denies other PMFSH - History History Provided By: Patient - Medical History Medical History: Medical History (Last Reviewed 10/28/17 @ 13:44 by MALLIKA Vivar) Anxiety History of hysterectomy Kidney stones Scabies - Tobacco History Second Hand Smoke Exposure: No Tobacco Use In Past 30 Days: Yes Smoking Status: Current every day smoker Tobacco Type: Cigarettes - Alcohol History How Often Do You Have a Drink Containing Alcohol: Never - Substance Use History Substance History: Past History - Substance Use Type Marijuana Status: Active Route Used: Inhalation Comment: Urine is pending toxicology Crack/Cocaine Status: Active - Travel History Recent Travel in the [place] Within the Last 8 Weeks: No Recent Travel Out of the Country Within the Last 8 Weeks: No - Immunization History Tetanus Immunization: Unable to Assess Hx Influenza Vaccine This Season: No Medications and Allergies Active Medications: Active Medications Al Hydrox/Mg Hydrox/Simethicone (Mag-Al Plus Susp Liq) 30 ml PO Q6H PRN PRN Reason: DYSPEPSIA Al Hydroxide/Mg Hydroxide (Milk Of Magnesia Liq) 30 ml PO Q12H PRN PRN Reason: Mild Constipation Bisacodyl (Dulcolax Supp) 10 mg RECTAL DAILY PRN PRN Reason: SEVERE CONSITIPATION Flumazenil (Romazecon Inj) 0.2 mg IV.PUSH Q1M PRN PRN Reason: OVERSEDATION Gabapentin (Neurontin) 300 mg PO BID ETHAN Haloperidol Lactate (Haldol Inj) 1 mg IV.PUSH Q15M PRN PRN Reason: for severe agitation Lactulose (Lactulose Liq) 30 ml PO DAILY PRN PRN Reason: SEVERE CONSITIPATION Lorazepam (Ativan) 1 mg PO Q4H PRN PRN Reason: for CIWA 8-10 Lorazepam (Ativan) 2 mg PO Q2H PRN PRN Reason: for CIWA 11-14 Lorazepam (Ativan Inj) 2 mg IV.PUSH Q2H PRN PRN Reason: for CIWA 11-14 Lorazepam (Ativan Inj) 2 mg IV.PUSH Q1H PRN PRN Reason: for CIWA 15-20 Lorazepam (Ativan Inj) 1 mg IV.PUSH Q4H PRN PRN Reason: for CIWA 8-10 Lorazepam (Ativan Inj) 2 mg IV.PUSH Q15M PRN PRN Reason: for CIWA > 20 Quetiapine Fumarate (Seroquel) 25 mg PO BID ETHAN Senna/Docusate Sodium (Sherri-Colace) 1 tab PO BID ETHAN Sennosides (Senokot) 17.2 mg PO Q12H PRN PRN Reason: Moderate Constipation Allergies Allergy/AdvReac Type Severity Reaction Status Date / Time codeine Allergy Severe Rash Verified 10/29/17 00:53 nitrofurantoin Allergy Mild Vomiting Verified 10/29/17 00:53 acetaminophen Allergy Rash Verified 10/29/17 00:53 [From Darvocet-N] cyclobenzaprine Allergy Rash Verified 10/29/17 00:53 [From Flexeril] ketorolac [From Toradol] Allergy Rash Verified 10/29/17 00:53 meperidine [From Demerol] Allergy Rash Verified 10/29/17 00:53 propoxyphene Allergy Rash Verified 10/29/17 00:53 [From Darvocet-N] Home Medications Medication Instructions Recorded Confirmed Type Xanax 1 mg PO TID 10/28/17 10/28/17 History gabapentin 300 mg PO BID 10/28/17 10/28/17 History Results - Labs CBC & Chem 7: 10/28/17 13:11 10/28/17 13:11 Labs: Laboratory Results - last 24 hr 10/28/17 10/28/17 15:25 15:25 Urine Color Yellow Urine Clarity Clear Urine pH 6.0 Ur Specific [place] 1.010 Urine Protein Negative Urine Glucose (UA) Negative Urine Ketones Negative Urine Occult Blood Negative Urine Nitrate Negative Urine Bilirubin Negative Urine Urobilinogen Less than 2 Ur Leukocyte Esterase Negative Urine RBC Less than 1 Urine WBC Less than 1 Ur Squamous Epith Cells 1 Urine Bacteria Rare H Hyaline Casts 1 Urine Mucus Few H Micro UA Comment Culture not ind Urine Culture Comments Culture not ind Urine Opiates Screen Pos H Ur Barbiturates Screen Neg Ur Amphetamines Screen Neg U Benzodiazepines Scrn Pos H Urine Cocaine Screen Pos H U Cannabinoids Screen Neg Exam Vital signs: Vital Signs 10/28/17 18:27 10/29/17 12:28 Temperature 98.0 F 98.8 F Pulse Rate 92 H 79 Respiratory Rate 18 Blood Pressure 125/106 H 134/79 Pulse Oximetry 98 98 Intake & Output 10/28/17 10/29/17 10/29/17 18:59 06:59 18:59 Weight 40.823 kg 41.4 kg Other: Weight On Admission 41.4 kg Narrative: Bilateral hand tremor, some sweating, agitation present - Constitutional moderate distress, severe distress - Routine HEENT Exam Head: Present: normocephalic Eye: Present: EOMI ENT: Present: mucous membranes moist Mental Status Examination Appearance: Disheveled Consciousness: Alert Orientation: x4 Motor Activity: Normal gait Speech: Unremarkable Language: Adequate Fund of Knowledge: Adequate Attention and Concentration: Adequate Memory: Unremarkable Mood: Appropriate, Angry, Irritable Affect: Irritable Thought Process & Associations: Goal directed Thought Content: Appropriate Hallucination Type: None, Visual Delusion Type: Somatic Suicidal Ideation: No Suicidal Plan: No Suicidal Intention: No Homicidal Ideation: No Homicidal Plan: No Homicidal Intention: No Insight: Poor Judgment: Poor Assessment and Plan - Plan Plan: Estimated LOS: [] days On psychiatric evaluation today I find a patient that is quite behavioral and emotional dysregulated, anxious, very irritable, with a fixed, with a structure complex delusion of having and seen multiple scabies over her body which seems to be quite distressing since and has detrimental consequences in the health of the patient. Patient has being persistently scratching her skin with the result of multiple abrasions and lacerations all over her body, she also has been having suicidal ideation due to her unsuccessful efforts to treat this condition. The patient has being reassured multiple times in the ER that she does not have this condition. Given her level of distress and her suicidal ideation as a consequence of the delusion the patient has an increased risk of danger to herself. She will be admitted in psychiatry for stabilization and safety. I will start Seroquel 25 mg twice daily for dilutions. She will be placed in CIWA protocol due to abuse of benzodiazepines. Unclear at this moment is current presentation is secondary to a delusional disorder or could be a combination of formication due to use of cocaine and hallucinations secondary to benzodiazepine withdrawal. Will consult psychiatry for second opinion. Will consult hospitalist for underlying medical conditions. Justification for Continued Inpatient Stay: Patient is psychiatric admission for stabilization and safety
[2017-10-29] MEDS: QUEtiapine 25 MG Tablet PO SCH ×2 (15:58→20:07)
[2017-10-29] MEDS: LORazepam 1 MG Tablet PO PRN (16:21)
[2017-10-29] MEDS: Gabapentin 300 MG Capsule PO SCH (20:07)
[2017-10-29] MEDS: Senna/Docusate Sodium 8.6/50 MG Tablet PO SCH (23:05)
[2017-10-30] MEDS: LORazepam 1 MG Tablet PO PRN ×2 (03:33→11:50)
[2017-10-30] MEDS: Senna/Docusate Sodium 8.6/50 MG Tablet PO SCH ×2 (08:33→21:40)
[2017-10-30] MEDS: QUEtiapine 25 MG Tablet PO SCH ×2 (08:34→23:10)
[2017-10-30] MEDS: Gabapentin 300 MG Capsule PO SCH ×2 (08:34→21:40)
[2017-10-30 12:04] LABS: Calcium 8.8 mg/dL (8.5-10.1); Carbon Dioxide 29.7 meq/L (21.0-32.0)
[2017-10-30 12:08] LABS: Chol/HDL Ratio 2.14 Ratio; HDL Cholesterol 59.8 mg/dL (40.0-60.0)
[2017-10-30] MEDS ORDERED: Aluminum/Magnesium/Simethacone Susp 30 ML UDC PO PRN (12:52)
--- NOTE | 2017-10-30 13:25 | P.PNPSY ---
Subjective Remarks: Patient initially admitted by Dr. Guerrero's H&P reviewed and agreed with. Dr. Guerrero has signed first opinion petition supporting [place] act. Patient seen by me with floor staff. Patient is markedly agitated and anxious and psychotic continues to perseverate on her perceived scabies infestation that is been verified with 8 or 9 different hospital visits. She states she can scrape with scab off her left forearm he can see the black bugs she can threw them on the floor and step on them or she can pick him up with you can borrow into her skin right in front of her eyes. Patient minimizes any relationship of this to her addictions the fact that she had opiates and benzodiazepines and cocaine to her problems. Thus I agree with Dr. Guerrero patient does meet criteria for involuntary psychiatric hospitalization under the [place] act and I will cosign second opinion petition supporting [place] act. We will have medicine consult with us, we will offer patient Seroquel as ordered by Dr. Guerrero Review of Systems other (Patient complains of infestation of scabies) Mental Status Examination Appearance: Disheveled Consciousness: Alert Orientation: x4 Motor Activity: Normal gait Speech: Unremarkable Language: Adequate Fund of Knowledge: Adequate Attention and Concentration: Adequate Memory: Unremarkable Mood: Angry, Anxious, Irritable Affect: Other (Decreased range and intensity) Thought Process & Associations: Intact, Linear Thought Content: Bizarre thinking, Hallucinations Hallucination Type: Visual, Tactile Delusion Type: Somatic Suicidal Ideation: No Suicidal Plan: No Suicidal Intention: No Homicidal Ideation: No Homicidal Plan: No Homicidal Intention: No Insight: Poor Judgment: Poor Assessment and Plan - Assessment (1) Brief psychotic disorder Code(s): F23 - Brief psychotic disorder Status: Acute (2) Delusional disorder Code(s): F22 - Delusional disorders Status: Acute - Plan Plan: At this time patient does meet [place] criteria I will cosign second opinion petition supporting [place] act. We will continue medications and consultations as ordered patient remains delusional psychotic. We will still need further observation to assess the role that substances plays in these behaviors including opiates benzodiazepines and cocaine Justification for Continued Inpatient Stay: At this time patient would decompensate a place to a lower level of care
[2017-10-30 16:29] LABS: Hemoglobin A1c 5.5 % (4.3-6.0)
--- NOTE | 2017-10-30 17:05 | P.DIET ---
Nutritional Evaluation Type of nutrition evaluation: initial Nutrition screening: Weight Loss > 10 lbs Subjective Subjective Comments: Pt says she has lost 28-lb over the last two years d/t the scabies. She goes on to say that the scabies are eating her organs and this is why she has lost the wt. Objective - Diagnosis Unspecified Psychosis - Objective [place] body weight: 50 kg % IBW: 82 Body Weight Used for Calculations: Actual (41.1 kg) Energy Needs - Lower Range (kCal/kg): 33 Energy Needs - Upper Range (kCal/kg): 38 Lower Limit kCal/kg (kCals): 1,356 Upper Limit kCal/kg (kCals): 1,562 Lower Limit Protein Factor (Grams per Kg): 1.2 Upper Limit Protein Factor (Grams per Kg): 1.5 Lower Protein Needs (Protein): 49 Upper Protein Needs (Protein): 62 Fluid Factor (ml/kg): 33 Estimated Fluid Needs (ml): 1,356 Dietitian Reviewed in Medical Record: Current diet, Curent medications, Intake & Output, Labs, Medical history Diet Order: Regular Oral Diet Intake Amount: Excellent 90%+ Objective Comments: PMH: anxiety, hysterectomy, kidney stones, scabies A1C pending Assessment Assessment: Pt is at nutritional risk r/t recent unintentional wt loss and low BMI 16.6. Pt appetite is good w/adequate po intake 50% or greater for meals here. Send Ensure Enlive TID for additional nutrition(= 350 kcal and 20g protein per serving). Labs reviewed. Dietitian will follow. Recommendations: 1. Send Ensure Enlive TID for additional nutrition 2. Dietitian will follow Dietitian to Monitor: Lab values, Supplement acceptance, Intake & Output, Weight change, PO Intake
[2017-10-31] MEDS: QUEtiapine 25 MG Tablet PO SCH ×3 (08:35→20:42)
[2017-10-31] MEDS: Gabapentin 300 MG Capsule PO SCH ×2 (08:35→20:41)
[2017-10-31] MEDS: Senna/Docusate Sodium 8.6/50 MG Tablet PO SCH ×2 (11:57→20:42)
--- NOTE | 2017-10-31 13:00 | P.PNPSY ---
Subjective Remarks: Patient seen in her room with floor staff, patient anxious and upset irritable demanding return of her, what she calls Ativan but it appears to be Xanax. Patient continues to deny mental illness continues to believe in the bugs on her body. We will increase scheduled Seroquel to 50 mg twice daily Review of Systems All other systems reviewed negative except as stated in HPI Mental Status Examination Appearance: Disheveled Consciousness: Alert Orientation: x4 Motor Activity: Normal gait Speech: Unremarkable Language: Adequate Fund of Knowledge: Adequate Attention and Concentration: Adequate Memory: Unremarkable Mood: Angry, Anxious, Irritable Affect: Other (Decreased range and intensity) Thought Process & Associations: Intact, Linear Thought Content: Bizarre thinking, Hallucinations Hallucination Type: Visual, Tactile Delusion Type: Somatic Suicidal Ideation: No Suicidal Plan: No Suicidal Intention: No Homicidal Ideation: No Homicidal Plan: No Homicidal Intention: No Insight: Poor Judgment: Poor Assessment and Plan - Assessment (1) Brief psychotic disorder Code(s): F23 - Brief psychotic disorder Status: Acute (2) Delusional disorder Code(s): F22 - Delusional disorders Status: Acute - Plan Plan: Patient remains quite psychotic and delusional, is also some increased anxiety related to her discontinuation of benzodiazepines. She is on the ciwa protocol to help prevent withdrawal symptoms see medication adjustment above Justification for Continued Inpatient Stay: At this time patient would decompensate a place to a lower level of care Discharge Planning: Possible return to her own home
[2017-11-01] MEDS: Senna/Docusate Sodium 8.6/50 MG Tablet PO SCH ×2 (09:32→20:29)
[2017-11-01] MEDS: QUEtiapine 25 MG Tablet PO SCH ×2 (09:32→20:29)
[2017-11-01] MEDS: Gabapentin 300 MG Capsule PO SCH ×2 (09:32→20:29)
--- NOTE | 2017-11-01 13:07 | P.PNPSY ---
Subjective Remarks: Patient was seen and case discussed with nursing. Patient is withdrawing from various substances. Per nursing she has been seeking benzodiazepines. She got 2 mg of Ativan this morning. Vital signs are within range. She reported seeing bugs. There is some suspicion of malingering. She denies suicidal or homicidal ideation plan. She is somnolent during my interview today Mental Status Examination Appearance: Disheveled Consciousness: Alert Orientation: x4 Motor Activity: Normal gait Speech: Unremarkable Language: Adequate Fund of Knowledge: Adequate Attention and Concentration: Adequate Memory: Unremarkable Mood: Angry, Anxious, Irritable Affect: Other (Decreased range and intensity) Thought Process & Associations: Intact, Linear Thought Content: Bizarre thinking, Hallucinations Hallucination Type: Visual, Tactile Delusion Type: Somatic Suicidal Ideation: No Suicidal Plan: No Suicidal Intention: No Homicidal Ideation: No Homicidal Plan: No Homicidal Intention: No Insight: Poor Judgment: Poor Assessment and Plan - Assessment (1) Brief psychotic disorder Code(s): F23 - Brief psychotic disorder Status: Acute (2) Delusional disorder Code(s): F22 - Delusional disorders Status: Acute - Plan Plan: Continue current treatment plan Justification for Continued Inpatient Stay: Patient would decompensate in a less restrictive setting
[2017-11-01] MEDS: Acetaminophen 325 MG Tablet PO PRN (13:55)
[2017-11-02] MEDS: Senna/Docusate Sodium 8.6/50 MG Tablet PO SCH ×2 (09:02→21:00)
[2017-11-02] MEDS: QUEtiapine 25 MG Tablet PO SCH ×2 (09:02→20:58)
[2017-11-02] MEDS: Gabapentin 300 MG Capsule PO SCH ×2 (09:02→20:59)
--- NOTE | 2017-11-02 15:51 | P.PNPSY ---
Subjective Remarks: Patient was seen and case discussed with nursing. There is concern the patient is malingering and seeking Ativan overnight. Nursing has observed nor symptoms that would register on the [facility]WA throughout the day. Patient has manipulative behavior which she says she has diarrhea but after her bathroom was locked has not been using the bathroom all day. Today, she is focused on discharge. Vitals are low normal. She denies suicidal or homicidal ideation intent or plan. Alert and oriented 4. No tremors Mental Status Examination Appearance: Disheveled Consciousness: Alert Orientation: x4 Motor Activity: Normal gait Speech: Unremarkable Language: Adequate Fund of Knowledge: Adequate Attention and Concentration: Adequate Memory: Unremarkable Mood: Angry, Anxious, Irritable Affect: Other (Decreased range and intensity) Thought Process & Associations: Intact, Linear Thought Content: Appropriate Hallucination Type: None Delusion Type: Somatic Suicidal Ideation: No Suicidal Plan: No Suicidal Intention: No Homicidal Ideation: No Homicidal Plan: No Homicidal Intention: No Insight: Poor Judgment: Poor Assessment and Plan - Assessment (1) Brief psychotic disorder Code(s): F23 - Brief psychotic disorder Status: Acute (2) Delusional disorder Code(s): F22 - Delusional disorders Status: Acute - Plan Plan: DC [place] protocol and Ativan. Start Ativan 2 mg p.o. every 8 hours and only give if systolic is higher than 160 or diastolic is higher than 110 or heart rate is higher than 110. Vitals every 8 hours Justification for Continued Inpatient Stay: Patient would decompensate in a less restrictive setting
[2017-11-03] MEDS: Acetaminophen 325 MG Tablet PO PRN ×2 (01:48→08:47)
[2017-11-03] MEDS: Gabapentin 300 MG Capsule PO SCH (08:47)
[2017-11-03] MEDS: QUEtiapine 25 MG Tablet PO SCH (08:47)
[2017-11-03] MEDS: Senna/Docusate Sodium 8.6/50 MG Tablet PO SCH (08:49)
--- NOTE | 2017-11-03 09:30 | P.TTN ---
- Patient Problems Problems: 1. Discharge planning 2. Medication compliance 3. Knowledge deficit 4. Lack of coping skills - Progress Toward Goals Provider Present: Dr. Ladarius Owens, Dr. Maryan Wallis Provider Input: Patient was asked to remain over weekend and allow outpatient follow up. appears fixated on [facility] Present: Lizz Mena LCSW (Patient signed up for Care Coordination, mother and daugther are supportive upon discharge and encourage her to seek mental health treatment) Group Spec/RT/OT/CASTILLO Present: JONATHAN Arndt (did not attend) - Documentation Teaching Recipient: Patient
--- NOTE | 2017-11-03 16:49 | P.DSPSY ---
Psychiatry Discharge Summary Inpatient Psychiatric care?: Yes Advance Directives: No Mental Health Advance Directive: No Health Care Proxy: No - Admission Admission Date: October 29, 2017 10:38 - Admission Diagnosis (1) Brief psychotic disorder Code(s): F23 - Brief psychotic disorder (2) Delusional disorder Code(s): F22 - Delusional disorders Brief History: The patient is a 57 year old woman, domiciled with her in [place], unemployed, anxiety, benzodiazepines, opiates and cocaine use disorder, no previous psychiatric hospitalizations, no previous suicidal attempts, the patient reports that she has been in Xanax 1 mg 3 times per day prescribed by PCP for a long time, she has medical history hypertension, who comes emergency department under [place] act by police reports suicidal ideations. U tox is positive for cocaine, opiates and cannabis. Chart was reviewed. The case was discussed with ER staff. On my psychiatric evaluation I find a patient that is extremely anxious, very emotionally unstable, stating that she has a real problem that no doctor have been able to self. She is looking at her bed screen, stating that the "bed is full of eggs". Patient states that she has been treated 9 times for scabies over the past year but they have never gone away. Patient reports that she has had her house treated for scabies but continues to see the bugs in her home and food. Patient states that she does not want to eat food at home secondary to bugs being in her food. Patient reports that she has been drinking protein shakes instead. Patient states she has lost weight secondary to not eating. She says that she prefers to kill herself before having to live this way. Patient tries to show me this scabies is in her skin, all I see are multiple scratches and lacerations, patient states that the itching is constant and is the same day or night. Patient states when she scratches at the lesions and she sees little black baby bugs run out of the sores. On the evaluation the patient is very anxious, very tremulous, she says that she is withdrawing. She denies homicidal ideation, she denies visual and auditory hallucinations at the moment. Tobacco Use In Past 30 Days: Yes How Often Do You Have a Drink Containing Alcohol: Never Hospital Course: The patient is a 57 year old woman, domiciled with her in [place], unemployed, anxiety, benzodiazepines, opiates and cocaine use disorder, no previous psychiatric hospitalizations, no previous suicidal attempts, the patient reports that she has been in Xanax 1 mg 3 times per day prescribed by PCP for a long time, she has medical history hypertension, who comes emergency department under [place] act by police reports suicidal ideations. which patient was admitted to the inpatient psychiatry for further evaluation and management. Patient was started on quetiapine and titrated to 50mg BID, gabapentin 300mg BID, and continued on medications for chronic medical illnesses which she tolerated well with no notable adverse drug reactions. Patient was noted to improve in cessation of delusions of bugs on her skin, was able to reach stable mood, was not noted to display any disorganized behavior and was not noted to respond to internal stimuli nor endorse and perceptual disturbances. She was observed by staff to not have had any behavioral disturbances, not having made any suicidal or homicidal statements and maintained stable mood through admission and was noted to participate with staff adequately. Upon discharge patient stated that she was feeling good, reported well with the treatment, denied any SI, HI, perceptual disturbances or delusions. Patient was counseled on importance of abstinence from substance use and reviewed risks of continued use. Weighing the acute, chronic, and protective factors and based on the available evidence, I dean of instruction to a reasonable degree of medical certainty that the patient is at low imminent risk of harm to self or others from a mental illness as defined under the [place] act and his level of function is adequate as observed on the unit for planned level of outpatient care. She was counseled regarding warning signs for need to return to the psychiatric emergency room as part of a general safety plan. Patient advised to call 911 or go nearest ED in case of emergency. Patient agreed with plan. - Discharge Discharge Date: 11/03/17 - Discharge Diagnosis (1) Brief psychotic disorder Code(s): F23 - Brief psychotic disorder Status: Acute (2) Delusional disorder Code(s): F22 - Delusional disorders Status: Acute Discharge Disposition: Home - Discharge Instructions Discharge Diet: Heart Healthy Diet Activities You Can Perform: Regular- No Restrictions - Discharge Time > 30 minutes Mental Status Examination Appearance: Appropriate Consciousness: Alert Orientation: x4 Motor Activity: Normal gait Speech: Unremarkable Language: Adequate Fund of Knowledge: Adequate Attention and Concentration: Adequate Memory: Unremarkable Mood: Appropriate Affect: Appropriate Thought Process & Associations: Intact, Goal directed, Linear Thought Content: Appropriate Hallucination Type: None Delusion Type: None Suicidal Ideation: No Suicidal Plan: No Suicidal Intention: No Homicidal Ideation: No Homicidal Plan: No Homicidal Intention: No Insight: Fair Judgment: Impulsive Discharge/Advance Care Plan - Results Vital Signs: Last Vital Signs Temp 97.8 F 11/03/17 06:17 Pulse 61 11/03/17 06:17 Resp 16 11/03/17 06:17 BP 111/55 L 11/03/17 06:17 Pulse Ox 97 11/03/17 06:17 Lab Results: Laboratory Results Hemoglobin A1c 5.5 % (4.3-6.0) 10/30/17 11:18 Triglycerides 70 mg/dL (42-150) 10/30/17 11:18 Cholesterol 128 mg/dL (120-200) 10/30/17 11:18 LDL Cholesterol, Calc 54 mg/dL (0-99) 10/30/17 11:18 HDL Cholesterol 59.8 mg/dL (40.0-60.0) 10/30/17 11:18 TSH 1.120 uIU/mL (0.358-3.740) 10/28/17 13:11 Urine Culture Comments Culture not ind 10/28/17 15:25 Summary of Procedures: none Pending Results: None - Medications Number of antipsychotic medications at discharge: 1 - Discharge Care Plan Goals to Promote Your Health: * To prevent worsening of your condition and complications * To maintain your health at the optimal level Directions to Meet Your Goals: Take your medications as prescribed Follow your dietary instruction Follow activity as directed Keep your appointments as scheduled Take your immunizations and boosters as scheduled If your symptoms worsen call your PCP, if no PCP go to Urgent Care Center or Emergency Room For 30/09 questions related to your inpatient stay or results of tests pending at discharge, please contact Dr. Ralph Wallis MD at Smoking is Dangerous to Your Health. Avoid second hand smoking
== END 2017-11-03 15:45 | disposition home or self-care (01) ==
LOC: NEPD 12:54 → NEDA 10-29 10:38 → H260 10-29 13:34
PROVIDERS: ADMIT Psychiatry & Neurology Psychiatry; ATTEND Psychiatry & Neurology Psychiatry